=== PATIENT | male | born 1950 | race Caucasian/White ===

== ENCOUNTER 2022-03-24 07:36 | Day surgery (SDC) | payer OTHER ==
[~2022-03-24] VITALS: Ht 167.6 cm; Wt 78.9 kg
[~2022-03-24 07:36] MED LIST: AVAPRO300 MG PO; METFORMIN HCL500 M3 PO; MIRALAX17 GM PO; MIRAPEX0.125 MG PO; TENORMIN50 M1 PO
== END 2022-03-24 14:40 | disposition home or self-care (01) ==
LOC: CIR.AMB 07:36
PROVIDERS: ATTEND Urology
DX: N20.0 Calculus of kidney (principal); Z20.822 Contact with and (suspected) exposure to COVID-19; I10 Essential (primary) hypertension; E11.9 Type 2 diabetes mellitus without complications; Z85.46 Personal history of malignant neoplasm of prostate